=== PATIENT | female | born 1990 | race Caucasian/White ===

== ENCOUNTER 2017-01-12 03:30 | Emergency (ER) | payer SELFPAY ==
--- NOTE | 2017-01-12 04:05 | C.PDOC ---
History Of Present Illness Patient c/o sore throat, mild cough and right eye pain and erythema for 1 week. Time Seen by Provider: 01/12/17 03:46 Chief Complaint (Nursing): ENT Problem History Per: Patient Onset/Duration Of Symptoms: Other (1 week) Current Symptoms Are (Timing): Still Present Past Medical History Reviewed: Historical Data, Nursing Documentation, Vital Signs Vital Signs: Last Vital Signs Temp 98.4 F 01/12/17 03:39 Pulse 80 01/12/17 03:39 Resp 20 01/12/17 03:39 BP 123/85 01/12/17 03:39 Pulse Ox 99 01/12/17 04:06 - Medical History PMH: Arthritis, Rheumatoid Arthritis Surgical History: No Surg Hx Family History: States: Unknown Family Hx - Social History Hx Alcohol Use: Yes (occasionally) Hx Substance Use: No Review Of Systems Except As Marked, All Systems Reviewed And Found Negative. Eyes: Positive for: Pain, Redness ENT: Positive for: Throat Pain Physical Exam - Physical Exam Appears: Well, Non-toxic, No Acute Distress Skin: Normal Color, No Rash Head: Atraumatic, Normacephalic Eye(s): right: Other (conjunctival injection), left: Normal Inspection Ear(s): Bilateral: Normal Nose: Normal Oral Mucosa: Moist Tongue: Normal Appearing Lips: Normal Appearing Throat: Erythema, No Exudate, No Drooling Neck: Normal ROM, Supple Chest: Symmetrical Cardiovascular: Rhythm Regular, No Edema Respiratory: Normal Breath Sounds, No Rales, No Rhonchi, No Wheezing Extremity: Normal ROM, No Tenderness Neurological/Psych: Oriented x3, Normal Speech, Normal Cognition ED Course And Treatment O2 Sat by Pulse Oximetry: 99 Progress Note: Zithromax po given. Patient was d/c home with PMD follow up. Disposition Counseled Patient/Family Regarding: Diagnosis, Need For Followup, Rx Given - Disposition Referrals: [facility] [Outside] Disposition: HOME/ ROUTINE Disposition Time: 04:02 Condition: GOOD Additional Instructions: Follow up with PMD within 1-2 days. Return to ED if feel worse. Prescriptions: Brompheniramine/Pseudoephed/Dm [Bromfed Dm Cough 118 ml] 10 ml PO Q4 #300 ml Ciprofloxacin 0.3% [Ciloxan 0.3% Ophth SOLN] 1 drop OS Q2 #1 bottle Azithromycin [Zithromax] 250 mg PO DAILY #4 tab Instructions: Upper Respiratory Infection (ED), Conjunctivitis (ED) - Clinical Impression Clinical Impression: URI (upper respiratory infection), Conjunctivitis
[2017-01-12 12:31] VITALS: BP 123/85; PULSE 80; RESP 20; TEMP 98.4; O2SAT 99
== END 2017-01-12 04:23 | disposition home or self-care (01) ==
LOC: C.ER 03:30
DX: J06.9 Acute upper respiratory infection, unspecified (principal); H10.9 Unspecified conjunctivitis